=== PATIENT | male | born 1980 | race Caucasian/White ===

== ENCOUNTER 2022-08-17 14:11 | Emergency (ER) | payer SELFPAY ==
[~2022-08-17] VITALS: Ht 172.7 cm; Wt 100.4 kg
[2022-08-17 14:12] VITALS: BP 133/80
[2022-08-17] MEDS ORDERED: LIDOCAINE W/EPINEPHRINE 1% 20ML VIAL SC ONE (16:30)
[2022-08-17] MEDS ORDERED: BACTRIM 160MG/800MG DS TAB PO ONE (17:25)
[2022-08-17] MEDS ORDERED: BACT800T5 PO (17:26)
== END 2022-08-17 18:06 | disposition home or self-care (01) ==
LOC: M ED 14:11
DX: L05.01 Pilonidal cyst with abscess (principal); F17.200 Nicotine dependence, unspecified, uncomplicated